=== PATIENT | female | born 1995 | race African-American/Black ===

== ENCOUNTER 2017-06-23 09:15 | Emergency (ER) | payer BC ==
[~2017-06-23] VITALS: Ht 167.6 cm; Wt 72.6 kg
[2017-06-23] MEDS ORDERED: PREDNISONE 20 M20 MG PO (09:35)
[2017-06-23] MEDS ORDERED: MOBIC7.5 MG PO (09:35)
== END 2017-06-23 09:50 | disposition home or self-care (01) ==
LOC: ER 09:15
DX: J02.0 Streptococcal pharyngitis (principal)